=== PATIENT | female | born 1985 | race African-American/Black ===

== ENCOUNTER 2017-10-16 | Emergency (ER) | payer OTHER | END 2017-10-16 14:30 | disposition left against medical advice (07) | DX: R30.9 Painful micturition, unspecified (principal); Z32.02 Encounter for pregnancy test, result negative; Z53.21 Procedure and treatment not carried out due to patient leaving prior to being seen by health care provider ==

== ENCOUNTER 2019-10-28 20:03 | Emergency (ER) | payer OTHER ==
--- NOTE | 2019-10-28 21:15 | ED ---
Psych HPI - General Source: patient, police Mode of arrival: ambulatory <Diomedes Lucero - Last Filed: 10/28/19 23:11> <Jorge Cardoso - Last Filed: 10/28/19 23:47> - General Chief Complaint: Psychiatric Symptoms Stated Complaint: Mental Health Time Seen by Provider: 10/28/19 20:14 - History of Present Illness Initial Comments: Patient is a 34-year-old female with history of bipolar disorder presenting to the emergency room with a chief complaint of for psychiatric evaluation. Patient states she has been undergoing rehab with [facility] and she is not been taking her Seroquel and Abilify medication for over a month. Patient states she is having insomnia and nightmares. Patient states she is waking up throughout the night screaming. Patient does report thoughts of suicide but no plans. Denies any homicidal thoughts or ideations. Auditory hallucinations commanding her to overdose and do self-harm. Denies any actual self-harm. (Diomedes Lucero) - Related Data Home Medications Medication Instructions Recorded Confirmed ARIPiprazole [Abilify] 30 mg PO DAILY 10/28/19 10/28/19 QUEtiapine FUMARATE [SEROquel] 300 mg PO HS 10/28/19 10/28/19 Allergies Allergy/AdvReac Type Severity Reaction Status Date / Time No Known Allergies Allergy Verified 10/28/19 22:30 Review of Systems ROS Other: All systems not noted in ROS Statement are negative. <Diomedes Lucero - Last Filed: 10/28/19 23:11> ROS Other: All systems not noted in ROS Statement are negative. <Jorge Cardoso - Last Filed: 10/28/19 23:47> ROS Statement: Those systems with pertinent positive or pertinent negative responses have been documented in the HPI. Past Medical History Past Medical History: No Reported History History of Any Multi-Drug Resistant Organisms: None Reported Past Surgical History: No Surgical Hx Reported Past Psychological History: Bipolar Smoking Status: Current every day smoker Past Alcohol Use History: None Reported Past Drug Use History: None Reported <Diomedes Lucero - Last Filed: 10/28/19 23:11> General Exam Limitations: no limitations General appearance: alert, in no apparent distress, obese Head exam: Present: atraumatic, normocephalic Eye exam: Present: normal appearance, PERRL, EOMI Pupils: Present: normal accommodation ENT exam: Present: normal exam, normal oropharynx, mucous membranes moist Neck exam: Present: normal inspection, full ROM. Absent: tenderness Respiratory exam: Present: normal lung sounds bilaterally. Absent: respiratory distress, wheezes Cardiovascular Exam: Present: regular rate, normal rhythm, normal heart sounds Extremities exam: Present: normal inspection, full ROM. Absent: tenderness Back exam: Present: normal inspection, full ROM. Absent: tenderness Neurological exam: Present: alert, oriented X3 Psychiatric exam: Present: depressed, flat affect Skin exam: Present: warm, dry, intact, normal color <Diomedes Lucero - Last Filed: 10/28/19 23:11> Course Vital Signs 10/28/19 20:06 Temperature 99 F Pulse Rate 88 Respiratory 18 Rate Blood Pressure 116/78 O2 Sat by Pulse 97 Oximetry Medical Decision Making <Diomedes Lucero - Last Filed: 10/28/19 23:11> <Jorge Cardoso - Last Filed: 10/28/19 23:47> - Medical Decision Making Patient is a 34-year-old female presenting to the emergency department for psychiatric evaluation. Patient is experiencing auditory hallucinations decremented to perform self harm and thoughts of suicide. Patient has no actual plans. If he accidentally the patient and they recommended admission. Patient will be transferred to another psychiatric facility. Dr. Cardoso will do the certificate. Case discussed with physician. (Diomedes Lucero) I saw this patient in conjunction with the physician asset protection assistant. I performed independent history and physical exam. Agree with case management. I did complete the clinical certification for this patient. (Jorge Cardoso) - Lab Data Lab Results 10/28/19 Range/Units 21:38 Urine Opiates Screen Not Detected (NotDetected) Ur Oxycodone Screen Not Detected (NotDetected) Urine Methadone Screen Not Detected (NotDetected) Ur Propoxyphene Screen Not Detected (NotDetected) Ur Barbiturates Screen Not Detected (NotDetected) U Tricyclic Antidepress Not Detected (NotDetected) Ur Phencyclidine Scrn Not Detected (NotDetected) Ur Amphetamines Screen Not Detected (NotDetected) U Methamphetamines Scrn Not Detected (NotDetected) U Benzodiazepines Scrn Not Detected (NotDetected) Urine Cocaine Screen Not Detected (NotDetected) U Marijuana (THC) Screen Detected H (NotDetected) Disposition Is patient prescribed a controlled substance at d/c from ED?: No Time of Disposition: 23:15 <Diomedes Lucero - Last Filed: 10/28/19 23:11> <Jorge Cardoso - Last Filed: 10/28/19 23:47> Clinical Impression: Suicidal ideation Disposition: TRANSFER TO PSYCH HOSP/UNIT Condition: Stable Additional Instructions: Patient transferred to another facility Referrals: None,Stated [Primary Care Provider] - 1-2 days
[2019-10-28 22:02] LABS: Amphetamine Screen,Urine Not Detected (NotDetected); Barbiturate Screen,Urine Not Detected (NotDetected); Benzodiazepines Screen,Urine Not Detected (NotDetected); Cocaine Screen,Urine Not Detected (NotDetected); Methadone Screen, Urine Not Detected (NotDetected); Opiate Screen,Urine Not Detected (NotDetected); Oxycodone Screen, Urine Not Detected (NotDetected); Phencyclidine Screen,Urine Not Detected (NotDetected); Tricyclic Antidepressant,Urine Not Detected (NotDetected); Urn Cannabinoid Scrn Detected (NotDetected)
[2019-10-28] MEDS ORDERED: QUEtiapine 100 MG TAB PO STA (23:10)
[2019-10-28] MEDS ORDERED: QUEtiapine 100 MG TAB PO ONE (23:15)
[2019-10-29 03:24] LABS: Basophils % (A) 0 %; Eosinophils # (A) 0.3 k/uL (0-0.7); Eosinophils % (A) 5 %; HCT 41.4 % (34.0-46.0); HGB 14.3 gm/dL (11.4-16.0); Lymphocytes # (A) 2.1 k/uL (1.0-4.8); Lymphocytes % (A) 30 %; MCH 32.9 pg (25.0-35.0); MCHC 34.5 g/dL (31.0-37.0); MCV 95.5 fL (80.0-100.0); Mean Platelet Volume 10.1; Monocytes # (A) 0.3 k/uL (0-1.0); Monocytes % (A) 4 %; Neutrophils # (A) 4.3 k/uL (1.3-7.7); Neutrophils % (A) 60 %; Platelet Count 138 k/uL (150-450); RBC 4.34 m/uL (3.80-5.40); RDW 12.1 % (11.5-15.5); WBC 7.1 k/uL (3.8-10.6)
[2019-10-29 03:30] LABS: ALT 25 U/L (4-34); AST 35 U/L (14-36); African American GFR (CKD) >90 (>60 ml/min/1.73 sqM); Albumin 3.5 g/dL (3.5-5.0); Alkaline Phosphatase 96 U/L (38-126); Anion Gap 5 mmol/L; Blood Urea Nitrogen 12 mg/dL (7-17); Calcium 8.8 mg/dL (8.4-10.2); Carbon Dioxide 23 mmol/L (22-30); Chloride 108 mmol/L (98-107); Glucose 105 mg/dL (74-99); Non-African American GFR(CKD) 81 (>60 ml/min/1.73 sqM); Potassium 3.7 mmol/L (3.5-5.1); Sodium 136 mmol/L (137-145); Total Bilirubin 0.4 mg/dL (0.2-1.3); Total Protein 6.3 g/dL (6.3-8.2)
[2019-10-29 05:04] LABS: Appearance,Urine Clear (Clear); Bacteria,Urine Few /hpf; Bilirubin,Urine Negative (Negative); Blood,Urine Negative (Negative); Color,Urine Yellow; Glucose,Urine (UA) Negative (Negative); Ketones,Urine Negative (Negative); Leukocyte Esterase,Urine Small (Negative); Mucus,Urine Rare /hpf; Nitrite,Urine Negative (Negative); Protein,Urine Negative (Negative); RBC,Urine 2 /hpf (0-5); Specific Gravity,Urine 1.018 (1.001-1.035); Squamous Epithelial Cell,Urine 1 /hpf (0-4); Urobilinogen,Urine <2.0 mg/dL (<2.0); WBC,Urine 15 /hpf (0-5)
[2019-10-29 14:16] VITALS: BP 149/74; PULSE 62; RESP 18; TEMP 97.9
== END 2019-10-29 14:47 ==
LOC: EC 20:03
DX: R45.851 Suicidal ideations (principal); F31.9 Bipolar disorder, unspecified; G47.00 Insomnia, unspecified; F17.200 Nicotine dependence, unspecified, uncomplicated; Z79.899 Other long term (current) drug therapy
CPT/HCPCS: 36415; 80053; 80306; 81001; 81025; 82075; 85025; 99285

== ENCOUNTER 2019-12-10 10:15 | Emergency (ER) | payer OTHER ==
[2019-12-10 10:30] VITALS: BP 132/89; PULSE 81; RESP 18; TEMP 98.6
--- NOTE | 2019-12-10 10:53 | ED ---
Female Urogenital HPI - General Chief complaint: Urogenital Stated complaint: yeast infection, med refill Source: patient Mode of arrival: ambulatory Limitations: no limitations - History of Present Illness Initial comments: Patient is a 34-year-old female presenting to emergency Department with complaints of a yeast infection as well as requesting a med refill. Patient states she has had yeast infections in the past and knows the signs and symptoms of it. She states she's been feeling vaginal itchiness and some mild discharge for the past 2 days. She denies any abdominal pain, nausea, vomiting. She denies being at this time. Patient is also requesting a refill of her psychiatric medications. She states she had lost her ID and has not been able to get into her doctor and she is running out. Patient takes zyban and Seroquel. She denies any suicidal or homicidal thoughts at this time. She has no further complaints at this time. Upon arrival to the ER, her vital signs are stable. - Related Data Home Medications Medication Instructions Recorded Confirmed ARIPiprazole [Abilify] 30 mg PO DAILY 10/28/19 10/28/19 QUEtiapine FUMARATE [SEROquel] 300 mg PO HS 10/28/19 10/28/19 Previous Rx's Medication Instructions Recorded Fluconazole [Diflucan] 150 mg PO ONCE #1 tab 12/10/19 QUEtiapine [SEROquel] 150 mg PO HS #42 tab 12/10/19 buPROPion HCL [Zyban] 150 mg PO DAILY #14 tab 12/10/19 Allergies Allergy/AdvReac Type Severity Reaction Status Date / Time No Known Allergies Allergy Verified 12/10/19 10:30 Review of Systems ROS Statement: Those systems with pertinent positive or pertinent negative responses have been documented in the HPI. ROS Other: All systems not noted in ROS Statement are negative. Past Medical History Past Medical History: No Reported History History of Any Multi-Drug Resistant Organisms: None Reported Past Surgical History: No Surgical Hx Reported Past Psychological History: Bipolar Smoking Status: Current every day smoker Past Alcohol Use History: None Reported Past Drug Use History: None Reported General Exam - General Exam Comments Initial Comments: GENERAL: Patient is well-developed and well-nourished. Patient is nontoxic and in no acute distress. HEAD: Atraumatic, normocephalic. EYES: Pupils equal round and reactive to light, extraocular movements intact, sclera anicteric, conjunctiva are normal. Eyelids were unremarkable. ENT: TMs normal, nares patent, oropharynx clear without exudates. Moist mucous membranes. NECK: Normal range of motion, supple without lymphadenopathy or JVD. LUNGS: Unlabored respirations. Breath sounds clear to auscultation bilaterally and equal. No wheezes rales or rhonchi. HEART: Regular rate and rhythm without murmurs, rubs or gallops. ABDOMEN: Soft, nontender, normoactive bowel sounds. No guarding, no rebound. No masses appreciated. : Declined MUSCULOSKELETAL: Normal extremities with adequate strength and normal range of motion, no pitting or edema. No clubbing or cyanosis. NEUROLOGICAL: Symmetrical smile. Normal speech, normal gait. PSYCH: Normal mood, normal affect. SKIN: Warm, Dry, normal turgor, no rashes or lesions noted. Limitations: no limitations Course Vital Signs 12/10/19 10:25 Temperature 98.6 F Pulse Rate 81 Respiratory 18 Rate Blood Pressure 132/89 O2 Sat by Pulse 97 Oximetry Medical Decision Making - Medical Decision Making Patient is a 34-year-old female here for a yeast infection as well as requesting a refill on 2 of her psychiatric medications, Zyban and Seroquel. She states she lost her ID and is having trouble getting into her doctor. She denies being this time, she denies any suicidal or homicidal thoughts. Patient d eclined a vaginal exam. I will prescribe her Diflucan for yeast infection as she is having vaginal itchiness, discharge as well as refill her medications for 2 weeks. I recommended following up with her PCP. She is in agreement with this plan of care. She is stable for discharge. Return parameters were discussed with the patient she verbalized understanding. Disposition Clinical Impression: Candidiasis of vagina, Medication refill Disposition: HOME SELF-CARE Condition: Stable Instructions (If sedation given, give patient instructions): Yeast Infection (ED) Additional Instructions: Please return to the Emergency Department if symptoms worsen or any other concerns. Take medication as prescribed. Follow-up with PCP for further medication refills. Prescriptions: Fluconazole [Diflucan] 150 mg PO ONCE #1 tab QUEtiapine [SEROquel] 150 mg PO HS #42 tab buPROPion HCL [Zyban] 150 mg PO DAILY #14 tab Is patient prescribed a controlled substance at d/c from ED?: No Referrals: None,Stated [Primary Care Provider] - 1-2 days
== END 2019-12-10 11:03 | disposition home or self-care (01) ==
LOC: EC 10:15
DX: B37.3 Candidiasis of vulva and vagina (principal); F31.9 Bipolar disorder, unspecified; Z76.0 Encounter for issue of repeat prescription; F17.200 Nicotine dependence, unspecified, uncomplicated; Z79.899 Other long term (current) drug therapy
CPT/HCPCS: 99283

== ENCOUNTER 2019-12-20 14:45 | Inpatient (IN) | payer MEDICAID, OTHER ==
[2019-12-20 16:24] LABS: Amphetamine Screen,Urine Not Detected (NotDetected); Barbiturate Screen,Urine Not Detected (NotDetected); Benzodiazepines Screen,Urine Not Detected (NotDetected); Cocaine Screen,Urine Not Detected (NotDetected); Methadone Screen, Urine Not Detected (NotDetected); Opiate Screen,Urine Not Detected (NotDetected); Oxycodone Screen, Urine Not Detected (NotDetected); Phencyclidine Screen,Urine Not Detected (NotDetected); Tricyclic Antidepressant,Urine Not Detected (NotDetected); Urn Cannabinoid Scrn Detected (NotDetected)
--- NOTE | 2019-12-20 17:36 | ED ---
General Adult HPI - General Source: patient, RN notes reviewed, old records reviewed Mode of arrival: ambulatory Limitations: no limitations <Edu Eckert - Last Filed: 12/20/19 23:08> <Darryl Alvares - Last Filed: 12/21/19 03:55> - General Chief complaint: Psychiatric Symptoms Stated complaint: Mental Health Time Seen by Provider: 12/20/19 15:10 - History of Present Illness Initial comments: 34-year-old female patient was evaluated for evaluation suicidal thoughts, patient reports that she is hearing voices which are telling her to overdose on her medications. Patient denies any actions to do this. She denies any physical complaint at this time and has had this before in the past. Patient is a history of psychiatric diagnoses. (Edu Eckert) - Related Data Previous Rx's Medication Instructions Recorded QUEtiapine [SEROquel] 150 mg PO HS #42 tab 12/10/19 buPROPion HCL [Zyban] 150 mg PO DAILY #14 tab 12/10/19 Allergies Allergy/AdvReac Type Severity Reaction Status Date / Time No Known Allergies Allergy Verified 12/20/19 17:37 Review of Systems ROS Other: All systems not noted in ROS Statement are negative. <Edu Eckert - Last Filed: 12/20/19 23:08> ROS Other: All systems not noted in ROS Statement are negative. <Darryl Alvares - Last Filed: 12/21/19 03:55> ROS Statement: Those systems with pertinent positive or pertinent negative responses have been documented in the HPI. Past Medical History Past Medical History: No Reported History History of Any Multi-Drug Resistant Organisms: None Reported Past Surgical History: No Surgical Hx Reported Past Psychological History: Bipolar, Depression Smoking Status: Current every day smoker Past Alcohol Use History: Abuse, Daily, Heavy Past Drug Use History: Marijuana <Edu Eckert - Last Filed: 12/20/19 23:08> General Exam Limitations: no limitations <Edu Eckert - Last Filed: 12/20/19 23:08> General appearance: alert, in no apparent distress Head exam: Present: atraumatic, normocephalic, normal inspection Eye exam: Present: normal appearance, PERRL, EOMI. Absent: scleral icterus, conjunctival injection, periorbital swelling ENT exam: Present: normal exam, mucous membranes moist Neck exam: Present: normal inspection. Absent: tenderness, meningismus, lymphadenopathy Respiratory exam: Present: normal lung sounds bilaterally. Absent: respiratory distress, wheezes, rales, rhonchi, stridor Cardiovascular Exam: Present: regular rate, normal rhythm, normal heart sounds. Absent: systolic murmur, diastolic murmur, rubs, gallop, clicks GI/Abdominal exam: Present: soft, normal bowel sounds. Absent: distended, tenderness, guarding, rebound, rigid Extremities exam: Present: normal inspection, full ROM, normal capillary refill. Absent: tenderness, pedal edema, joint swelling, calf tenderness Back exam: Present: normal inspection Neurological exam: Present: alert, oriented X3, CN II-XII intact Psychiatric exam: Present: normal affect, normal mood Skin exam: Present: warm, dry, intact, normal color. Absent: rash <Darryl Alvares - Last Filed: 12/21/19 03:55> - General Exam Comments Initial Comments: Constitutional: NAD, AOX3, Pt has pleasant affect. HEENT: NC/AT, trachea midline, neck supple, no lymphadenopathy. External ears appear normal, without discharge. Mucous membranes moist. EOM intact. There is no scleral icterus. No pallor noted. Cardiopulmonary: RRR, no murmurs, rubs or gallops, no JVD noted. Lungs CTAB in anterior and posterior jamil. No peripheral edema. Abdominal exam: Abdomen soft and non-distended. Abdomen non-tender to palpation in all 4 quadrants. Bowel sounds active in LLQ. No hepatosplenomegaly. No ecchymosis Neuro: CN II-XII grossly intact. MSK: Full active ROM in upper and lower extremities, 5/5 stregnth. (Edu Eckert) Course <Darryl Alvares - Last Filed: 12/21/19 03:55> Vital Signs 12/20/19 12/20/19 12/20/19 14:59 19:18 22:15 Temperature 98.9 F 98.4 F 97.9 F Pulse Rate 84 86 63 Respiratory 18 18 18 Rate Blood Pressure 114/73 112/80 113/53 O2 Sat by Pulse 99 99 97 Oximetry - Reevaluation(s) Reevaluation #1: 08/29/20 03:54 Medical clear for psychiatric evaluation (Darryl Alvares) Medical Decision Making <Edu Eckert - Last Filed: 12/20/19 23:08> <Darryl Alvares - Last Filed: 12/21/19 03:55> - Medical Decision Making 34 old female patient's ED for eval of psychiatric complaints. Patient vital signs STABLE, AFEBRILE. DENIES ANY PHYSICAL COMPLAINTS. PHYSICAL EXAM IS ACUTE PATHOLOGY. PATIENT SIGNED OUT TO DR. ALVARES PENDING PSYCHIATRIC EVALUATION. (Edu Eckert) 34 male seen in however psychiatry patient will be admitted for psychiatric evaluation and treatment (Darryl Alvares) - Lab Data Lab Results 12/20/19 12/20/19 Range/Units 16:03 16:03 Urine HCG, Qual Not Detected (Not Detectd) Urine Opiates Screen Not Detected (NotDetected) Ur Oxycodone Screen Not Detected (NotDetected) Urine Methadone Screen Not Detected (NotDetected) Ur Propoxyphene Screen Not Detected (NotDetected) Ur Barbiturates Screen Not Detected (NotDetected) U Tricyclic Antidepress Not Detected (NotDetected) Ur Phencyclidine Scrn Not Detected (NotDetected) Ur Amphetamines Screen Not Detected (NotDetected) U Methamphetamines Scrn Not Detected (NotDetected) U Benzodiazepines Scrn Not Detected (NotDetected) Urine Cocaine Screen Not Detected (NotDetected) U Marijuana (THC) Screen Detected H (NotDetected) Disposition <Edu Eckert - Last Filed: 12/20/19 23:08> Is patient prescribed a controlled substance at d/c from ED?: No <Darryl Alvares - Last Filed: 12/21/19 03:55> Clinical Impression: Acute anxiety, Suicidal ideation, Depression Disposition: TRANSFER TO PSYCH HOSP/UNIT Condition: Fair
[2019-12-21] MEDS ORDERED: LORazepam 1 MG TAB PO PRN (04:04)
[2019-12-21] MEDS ORDERED: MAGNESIUM HYDROXIDE 2,400 MG/10 ML CUP PO PRN (04:04)
[2019-12-21] MEDS ORDERED: ACETAMINOPHEN TAB 325 MG TAB PO PRN (04:04)
[2019-12-21] MEDS ORDERED: ZIPRASIDONE 20 MG VIAL IM PRN (04:04)
[2019-12-21 08:47] LABS: Basophils # (A) 0.1 k/uL (0-0.2); Basophils % (A) 1 %; Eosinophils # (A) 0.3 k/uL (0-0.7); Eosinophils % (A) 4 %; HCT 43.6 % (34.0-46.0); Lymphocytes # (A) 1.9 k/uL (1.0-4.8); Lymphocytes % (A) 24 %; MCH 30.6 pg (25.0-35.0); MCV 95.6 fL (80.0-100.0); Mean Platelet Volume 9.1; Monocytes # (A) 0.3 k/uL (0-1.0); Monocytes % (A) 4 %; Neutrophils % (A) 65 %; Platelet Count 154 k/uL (150-450); RBC 4.56 m/uL (3.80-5.40); RDW 12.8 % (11.5-15.5); WBC 7.6 k/uL (3.8-10.6)
[2019-12-21 08:49] LABS: ALT 40 U/L (4-34); AST 50 U/L (14-36); African American GFR (CKD) >90 (>60 ml/min/1.73 sqM); Albumin 3.8 g/dL (3.5-5.0); Alkaline Phosphatase 130 U/L (38-126); Anion Gap 5 mmol/L; Blood Urea Nitrogen 8 mg/dL (7-17); Calcium 8.7 mg/dL (8.4-10.2); Carbon Dioxide 24 mmol/L (22-30); Chloride 108 mmol/L (98-107); Cholesterol 185 mg/dL (<200); Glucose 104 mg/dL (74-99); HDL Cholesterol 46 mg/dL (40-60); LDL Cholesterol,Calculated 113 mg/dL (0-99); Non-African American GFR(CKD) >90 (>60 ml/min/1.73 sqM); Potassium 4.5 mmol/L (3.5-5.1); Sodium 137 mmol/L (137-145); Total Bilirubin 0.7 mg/dL (0.2-1.3); Triglycerides 130 mg/dL (<150)
[2019-12-21] MEDS: NICOTINE 14MG/24HR PATCH TRANSDERM SCH (09:58)
[2019-12-21] MEDS ORDERED: MIRTAZAPINE 15 MG TAB PO PRN (11:43)
[2019-12-21] MEDS ORDERED: hydrOXYzine HCL 25 MG TAB PO PRN (11:44)
[2019-12-21] MEDS: LURASIDONE 20 MG TAB PO SCH (12:23)
[2019-12-21 19:58] LABS: Hemoglobin A1C 5.2 % (4.0-6.0)
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
--- NOTE | 2019-12-22 05:08 | P.CONS ---
History of Present Illness - Reason for Consult Consult date: 12/22/19 - History of Present Illness The patient is a 34-year-old female with a PMH of bipolar disorder and depression who presented to the ED with complaints of depression, suicidal ideation, and auditory hallucinations. The patient was subsequently admitted to the mental health unit where she was seen and evaluated at the bedside. She reported feeling better though continues to have auditory hallucinations. She denied any additional complaints. She reports smoking 1 pack of cigarettes daily for the last 2 decades. She denied chest pain, shortness of fever, chills, cough. She denied nausea, vomiting, abdominal pain, or diarrhea. Review of Systems Pertinent positives and negatives as discussed in HPI, a complete review of systems was performed and all other systems are negative. Past Medical History Past Medical History: No Reported History History of Any Multi-Drug Resistant Organisms: None Reported Past Surgical History: No Surgical Hx Reported Smoking Status: Current every day smoker Medications and Allergies Home Medications Medication Instructions Recorded Confirmed Type QUEtiapine [SEROquel] 150 mg PO HS #42 tab 12/10/19 12/21/19 Rx buPROPion HCL [Zyban] 150 mg PO DAILY #14 tab 12/10/19 12/21/19 Rx Allergies Allergy/AdvReac Type Severity Reaction Status Date / Time No Known Allergies Allergy Verified 12/21/19 04:48 Physical Exam Vitals: Vital Signs Temp Pulse Resp BP Pulse Ox 12/21/19 13:28 99.0 F 12/21/19 04:52 98.0 F 66 20 99/69 94 L General: non toxic, no distress, appears at stated age, or morbidly obese Derm: no unusual rashes/lesions no unusual ecchymoses, warm, dry Head: atraumatic, normocephalic, symmetric Eyes: EOMI, no lid lag, anicteric sclera, pupils equal round reactive to light ENT: Nose and ears atraumatic, no thrush, no pharyngeal erythema Neck: No thyromegaly, no cervical lymphadenopathy, trachea midline, supple Mouth: no lip lesion, mucus membranes moist Cardiovascular: S1S2 reg, no murmur, positive posterior tibial pulse bilateral, no edema, capillary refill less than 2 seconds Lungs: CTA bilateral, no rhonchi, no rales , no accessory muscle use Abdominal: soft, nontender to palpation, no guarding, no appreciable organomegaly, normal bowel sounds Ext: no gross muscle atrophy, muscle strength 5 out of 5 in all 4 extremities grossly, no contractures, Neuro: CN II-XI grossly intact, light touch intact all 4 extremities, finger to nose within normal limits, Psych: Alert, oriented, flat affect Results CBC & Chem 7: 12/21/19 08:19 12/21/19 08:19 Labs: Abnormal Lab Results - Last 24 Hours (Table) 12/21/19 Range/Units 08:19 Chloride 108 H (98-107) mmol/L Glucose 104 H (74-99) mg/dL AST 50 H (14-36) U/L ALT 40 H (4-34) U/L Alkaline Phosphatase 130 H (38-126) U/L LDL Cholesterol, Calc 113 H (0-99) mg/dL Assessment and Plan Plan: Depression with psychosis -As per psychiatry Tobacco and marijuana abuse -Advised on the importance of cessation Abnormal LFTs -Unclear etiology -Monitor for now Thank you for allowing us to participate in the care of this patient. We will follow peripherally. Do not hesitate to contact us with questions. Someone can be reached from the [facility] hospitalist group at all hours of the day at [phone].
[2019-12-22] MEDS: NICOTINE 14MG/24HR PATCH TRANSDERM SCH (08:00)
[2019-12-22] MEDS: LURASIDONE 20 MG TAB PO SCH (08:00)
--- NOTE | 2019-12-22 13:28 | P.PN ---
Progress Note - Text Progress Note Date: 12/22/19 Subjective: Patient was seen today as a cross coverage for Dr. Bailon. The patient was evaluated, chart reviewed, case discussed with the treatment team. Patient reports good sleep with taking Remeron, and appetite was reported as "better ". Patient has been going to some groups and other unit activities. The patient is compliant with her medications and denies any adverse reactions. Patient reports continued to feel depressed and having suicidal ideation but denies any plan. Reports continued to have auditory hallucinations telling her to kill herself but she is trying to distract herself and not responding to the voices. She denies any homicidal ideation, or paranoid thoughts. No manic symptoms have been reported or noticed. She denies any physical symptoms. Objective: Vitals has been reviewed. MENTAL STATUS EVALUATION: Appearance: Appears stated age, partially disheveled, above average body built, and no specific features. Gait/ posture: Steady gait, normal arm swinging, no abnormal movements, with relaxed posture. Attitude and Behavior: guarded, partially related to the interviewer. Poor eye contact during course of interview. Motor Activity: decreased psychomotor activity. Speech: spontaneous, slow rate, rhythm, and articulation. soft volume. not pressured. Mood: depressed, anxious. Affect: Restricted Thought process: Slow, restricted. Association: intact Thought content: No delusions, reports suicidal thoughts, denies homicidal thoughts, no intentions, or plans. Perception: Reports AH, and sometimes VH Alertness: No impairment. Orientation: Oriented to time, person, place and situation. Insight regarding psychiatric condition: Fair Judgment regarding daily activities and social situation: fair Impulse control: fair Assessment: Bipolar disorder type I, most recent episode depressed with psychotic features. Generalized anxiety disorder. Alcohol use disorder severe Cannabis use disorder severe Plan: Continue inpatient level of care due to need for further stabilization on medications. Precautions: Continue 15 minutes check for safety. Consider medical consultation if any acute medical issues arise. Provide the patient individual, group therapy, substance use disorder counseling to give better insight and learn coping skills. Medications: Continue Latuda and increase the dose to 40 mg was dinner for better stabilization of psychotic symptoms. Continue Remeron and keeping scheduled at bedtime for depression and insomnia. Continue when necessary psychiatric medications. Continue nonpsychiatric medications for comorbid medical problems. Discharge patient to OUTPATIENT services upon a stabilization
[2019-12-22] MEDS: LURASIDONE 40 MG TAB PO SCH (16:46)
[2019-12-22] MEDS: MIRTAZAPINE 15 MG TAB PO SCH (21:57)
[2019-12-23] MEDS: NICOTINE 14MG/24HR PATCH TRANSDERM SCH (09:49)
[2019-12-23] MEDS: MAG HYDROX/AL HYDROX/SIMETH 30 ML CUP PO PRN ×2 (10:31→20:10)
--- NOTE | 2019-12-23 11:49 | P.PN ---
Progress Note - Text Progress Note Date: 12/23/19 Interval History: Patient was seen lying in her bed today and was directable and agreeable to sp pat with keno writer/runner in the office. Patient explained about the reasons why she came into the hospital and states that she's been "seeing things and hearing things" and claims that she was feeling scared and spoke about her substance use and also was speaking about her suicidal thoughts to overdose on medications prior to coming to the hospital. She states that she is looking to get sober and agrees that her cannabis use baby contributed to her symptoms. She claims her mood is depressed however improving mildly. She claims that the voices have gotten much better and denies any suicidal thoughts at this time. She states that she is trying to go to some groups and participate as best as she can. She states that she slept better last night and has a fair appetite. At this time patient denies any suicidal or homical ideations, intent or plan. Patient denies visual hallucinations and denies any paranoia or delusions. Patient denies any side effects from the medications and has been compliant with meds. Mental Status Exam: General Appearance: Patient appears to be overweight, older than stated age is alert, directable, and attempts to be cooperative. Fair hygiene and grooming. Behavior: Patient is calmly seated without any agitated behavior. Attempts to be cooperative. Speech: Patient's speech is fluent and nonpressured. Mood/Affect: Mood is depressed however is improving mildly, affect is congruent and constricted. Suicidality/Homicidality: Patient denies having any suicidal or homicidal ideation intent or plan. Perceptions: Patient denies any visual hallucinations admits to ongoing auditory hallucinations which have been improving. Though content/process: There is no evidence of any delusional thought content and thought process is linear and goal-directed. Spoke about her sobriety and her symptoms. Memory and concentration: AOX3, grossly intact for the purposes of this session Judgment and insight: poor, Improving mildly Assessment Bipolar disorder type I, most recent episode depressed with psychotic features. Generalized anxiety disorder. Alcohol use disorder severe Cannabis use disorder severe Nicotine dependence Plan: -Patient continues to meet criteria for inpatient psychiatric admission for symptom stabilization and safety. Patient has signed adult voluntary form and medication consent and was placed in patient's chart. -Medications: Continue with Latuda 40mg at dinnertime for mood stabilization/depression, Remeron 15 mg daily at bedtime for insomnia/mood/appetite. -When necessary Ativan and Geodon for agitation/aggression. -NRT - nicotine patch -SW on board for discharge planning. Encouraged the patient to participate in milieu. tie up worker will fax packet today to [facility] as patient claims that she is willing to go to rehab and work on her sobriety
[2019-12-23] MEDS: LURASIDONE 40 MG TAB PO SCH (17:15)
[2019-12-23] MEDS: MIRTAZAPINE 15 MG TAB PO SCH (20:09)
[2019-12-24 07:44] LABS: ALT 31 U/L (4-34); AST 40 U/L (14-36); African American GFR (CKD) >90 (>60 ml/min/1.73 sqM); Albumin 3.5 g/dL (3.5-5.0); Alkaline Phosphatase 97 U/L (38-126); Anion Gap 7 mmol/L; Blood Urea Nitrogen 9 mg/dL (7-17); Carbon Dioxide 27 mmol/L (22-30); Chloride 104 mmol/L (98-107); Glucose 81 mg/dL (74-99); Non-African American GFR(CKD) 90 (>60 ml/min/1.73 sqM); Potassium 4.5 mmol/L (3.5-5.1); Sodium 138 mmol/L (137-145); Total Bilirubin 0.6 mg/dL (0.2-1.3); Total Protein 6.4 g/dL (6.3-8.2)
[2019-12-24] MEDS ORDERED: IBUPROFEN 600 MG TAB PO PRN (08:27)
--- NOTE | 2019-12-24 08:32 | P.PN ---
Progress Note - Text Progress Note Date: 12/24/19 Interval History: Patient was seen and out of her room this morning after breakfast and about to head into group and was directable and agreeable to speak with sheet writer in the office. Patient offered no overnight complaints and states that she is improving mildly with regards to her mood. She spoke briefly about her medications and states that it is helping her however asked if she could have an Advil or Tylenol with her Latuda as she states that it gives her a brief headache after she takes it in the evening time. She is continuing to speak about rehab however has not heard an answer but when her intake date will be. She states that she will be okay going to a [facility] while she is waiting for her intake date. She states that her energy level is fair and appetite is good. She states that she was able to sleep throughout the night. She states that she is trying to go to some groups and participate as best as she can. At this time patient denies any suicidal or homical ideations, intent or plan. Patient denies visual hallucinations and denies any paranoia or delusions. Patient denies any side effects from the medications except for headache and has been compliant with meds. Mental Status Exam: General Appearance: Patient appears to be overweight, older than stated age is alert, directable, and attempts to be cooperative. Fair hygiene and grooming. Behavior: Patient is calmly seated without any agitated behavior. Attempts to be cooperative. Speech: Patient's speech is fluent and nonpressured. Mood/Affect: Mood is improving mildly, affect is congruent and constricted. Suicidality/Homicidality: Patient denies having any suicidal or homicidal ideation intent or plan. Perceptions: Patient denies any visual hallucinations and denies any auditory hallucinations today. Though content/process: There is no evidence of any delusional thought content and thought process is linear and goal-directed. Spoke about her sobriety and her symptoms. Memory and concentration: AOX3, grossly intact for the purposes of this session Judgment and insight: Improving mildly Assessment Bipolar disorder type I, most recent episode depressed with psychotic features. Generalized anxiety disorder. Alcohol use disorder severe Cannabis use disorder severe Nicotine dependence Plan: -Patient continues to meet criteria for inpatient psychiatric admission for symptom stabilization and safety. Patient has signed adult voluntary form and medication consent and was placed in patient's chart. -Medications: Continue with Latuda 40mg at dinnertime for mood stabilization/depression, Remeron 15 mg daily at bedtime for insomnia/mood/appetite. Admitted ibuprofen and Tylenol when necessary for headaches/pain. -When necessary Ativan and Geodon for agitation/aggression. -NRT - nicotine patch -SW on board for discharge planning. Encouraged the patient to participate in milieu. Still awaiting response from [facility] to arrange for intake date for rehab. Likely discharge tomorrow to [facility].
[2019-12-24] MEDS: NICOTINE 14MG/24HR PATCH TRANSDERM SCH ×2 (10:12→12:01)
[2019-12-24] MEDS: MIRTAZAPINE 15 MG TAB PO SCH (20:55)
[2019-12-24] MEDS: LURASIDONE 40 MG TAB PO SCH (20:55)
[2019-12-25 06:49] VITALS: BP 148/106; PULSE 99; RESP 18; TEMP 98.1
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
[2019-12-25] MEDS: NICOTINE 14MG/24HR PATCH TRANSDERM SCH (10:19)
== END 2019-12-25 10:21 | DRG 885 ==
LOC: EC 14:45 → 3MHU 12-21 03:47
PROVIDERS: ADMIT Psychiatry & Neurology Psychiatry; ATTEND Psychiatry & Neurology Psychiatry
DX: F31.5 Bipolar disorder, current episode depressed, severe, with psychotic features (principal); R45.851 Suicidal ideations; Z68.43 Body mass index [BMI] 50.0-59.9, adult; F10.20 Alcohol dependence, uncomplicated; F17.210 Nicotine dependence, cigarettes, uncomplicated; F12.10 Cannabis abuse, uncomplicated; F41.1 Generalized anxiety disorder; G47.00 Insomnia, unspecified; E66.9 Obesity, unspecified; H18.4 Corneal degeneration; Z79.899 Other long term (current) drug therapy; Z91.5 Personal history of self-harm; Z91.411 Personal history of adult psychological abuse; Z81.1 Family history of alcohol abuse and dependence
CPT/HCPCS: 80053; 80061; 80306; 81025; 82075; 83036; 84443; 85025; 99285